=== PATIENT | male | born 1990 | race Caucasian/White ===

== ENCOUNTER → 2018-04-21 | Outpatient (CLI) | payer OTHER | END | disposition home or self-care (01) | LOC: PCVCIMAG 11:56 | DX: R07.89 Other chest pain (principal); E78.5 Hyperlipidemia, unspecified; R00.1 Bradycardia, unspecified; R53.83 Other fatigue; R06.02 Shortness of breath; Z82.49 Family history of ischemic heart disease and other diseases of the circulatory system; Z88.8 Allergy status to other drugs, medicaments and biological substances | CPT/HCPCS: 80061; 93325; 93351 ==